=== PATIENT | male | born 1965 | race Caucasian/White ===

== ENCOUNTER 2021-04-05 09:56 | Inpatient (IN) | payer MEDICAID ==
[2021-03-29 15:41] LABS: BASOPHILS # (AUTO) 0.1 X10'3 (0-0.2); EOSINOPHILS # (AUTO) 0.4 X10'3 (0-0.9); EOSINOPHILS % (AUTO) 3.1 % (0-6); LYMPHOCYTES # (AUTO) 2.8 X10'3 (1.1-4.8); LYMPHOCYTES % (AUTO) 24.4 % (21-51); MEAN CORPUSCULAR HEMOGLOBIN 29.9 PG (27.0-31.0); MEAN CORPUSCULAR HGB CONC 34.5 g/dL (33.0-36.5); MEAN CORPUSCULAR VOLUME 86.4 FL (78-98); MEAN PLATELET VOLUME 6.9 FL (7.4-10.4); MONOCYTES # (AUTO) 1.1 X10'3 (0-0.9); MONOCYTES % (AUTO) 9.9 % (2-12); NEUTROPHILS # (AUTO) 7.1 X10'3 (1.8-7.7); NEUTROPHILS % (AUTO) 61.6 % (42-75); PRE OP HEMOGLOBIN 15.6 g/dL (14.0-17.9); PRE OP PLATELET COUNT 276 X10'3 (140-440); RED BLOOD COUNT 5.21 X10'6 (4.70-6.10); RED CELL DISTRIBUTION WIDTH 13.7 % (11.5-14.5)
[2021-03-29 15:51] LABS: ALBUMIN 4.3 G/DL (3.4-5.0); ALBUMIN/GLOBULIN RATIO 1.2 (1.1-1.5); ALKALINE PHOSPHATASE 115 IU/L (46-116); BLOOD UREA NITROGEN 16 MG/DL (7-18); BUN/CREATININE RATIO 15.7 (5.4-32.0); CALCIUM 9.3 MG/DL (8.5-10.1); CHLORIDE 106 MMOL/L (99-107); CREATININE 1.02 MG/DL (0.60-1.10); PRE OP ALT 56 U/L (30-65); PRE OP ANION GAP 8 (8-16); PRE OP AST 20 U/L (10-37); PRE OP BILIRUB, TOTAL 0.4 MG/DL (0.0-1.0); PRE OP GLUCOSE 102 MG/DL (70-104); PRE OP POTASSIUM 4.2 MMOL/L (3.4-5.1); PRE OP SODIUM 144 MMOL/L (135-145); TOTAL CARBON DIOXIDE 29.8 MMOL/L (24-32); eGFR 76 ML/MIN
[~2021-04-05] VITALS: Ht 182.9 cm; Wt 98.1 kg
[2021-04-05] VITALS (17 sets, daily range): BP systolic 126–153; BP diastolic 72–95
[~2021-04-05 09:56] MED LIST: METF-437 PO; famotidine 20mg tablet PO ONE; ringers solution, lacted 1,000 ML IV SCH
[2021-04-05] MEDS ORDERED: midazolam 1 mg/ML 2ml injection ONE (15:41)
[2021-04-05] MEDS ORDERED: fentaNYL/PF 50MCG/1 ML 2ML syringe ONE ×2 (15:41→16:50)
[2021-04-05] MEDS ORDERED: LIDOcaine 1% 30ml preserv. free vial ONE (16:04)
[2021-04-05] MEDS ORDERED: BUPIVAcaine 0.5% inj/PF 30 ML ONE (16:04)
[2021-04-05] MEDS ORDERED: meperidine/PF 25mg/ml syringe IV PRN ×3 (16:25)
[2021-04-05] MEDS ORDERED: morphine 4 MG/ML inj SYRINge IV PRN (16:25)
[2021-04-05] MEDS ORDERED: sevoflurane 250ml liquid IH ONE (16:25)
[2021-04-05] MEDS ORDERED: ringers solution, lacted 1,000 ML IV SCH (16:25)
[2021-04-05] MEDS ORDERED: morphine 2 MG/ML inj. syringe IV PRN (16:25)
[2021-04-05] MEDS ORDERED: labetalol 20mg/4ml (5mg/ml) syringe IV ONE (16:25)
[2021-04-05] MEDS ORDERED: ondansetron/PF 4mg/2ml inj IV PRN ×2 (16:25→21:05)
[2021-04-05] MEDS ORDERED: proCHLORperazine 10 MG/2 ml inj IV PRN (16:25)
[2021-04-05] MEDS ORDERED: propofol inj 20 ML IV ONE (16:50)
[2021-04-05] MEDS ORDERED: ondansetron/PF 4mg/2ml inj ONE (16:50)
[2021-04-05] MEDS ORDERED: LIDOcaine 2% (20mg/ml) 5ml vial ONE (16:50)
[2021-04-05] MEDS ORDERED: rocuronium 10mg/ml inj IV ONE (16:50)
[2021-04-05] MEDS ORDERED: glycopyrrolate 0.2mg/ml inj ONE (18:23)
[2021-04-05] MEDS ORDERED: acetaminophen 1,000mg/100ml IV 100 ML IV ONE (18:23)
[2021-04-05] MEDS ORDERED: neostigmine methylsulfate 1 MG/ML 10ml vial ONE (18:23)
[2021-04-05] MEDS ORDERED: meperidine/PF 25mg/ml syringe ONE (18:25)
--- NOTE | 2021-04-05 18:35 | NUR ---
Received from OR via , accompanied by Anesthesiologist and report given by Anesthesiolgist. PATIENT WAKING UP, DENIES PAIN,. SCD ON. 20G RUE. V/S WNL, SCD ON, BANDAIDS X4 TO ABDOMEN CDI
[2021-04-05] MEDS ORDERED: insulin regular, human U-100 3ml vial - multi-dose IV ONE (18:45)
--- NOTE | 2021-04-05 18:52 | NUR ---
SEE LABS INSULIN ORDERED 4 UNITS FOR BG 178
[2021-04-05] MEDS ORDERED: HYDR-3964 PO (19:21)
[2021-04-05] MEDS: HYDROcodone/acetaminophen 5mg/325mg tablet PO PRN (19:26)
[2021-04-05] MEDS ORDERED: ceFAZolin 1000mg inj ONE (20:02)
--- NOTE | 2021-04-05 20:08 | NUR ---
PATIENT UNABLE TO PEE- BLADDER SCANNED FOR 323CC
--- NOTE | 2021-04-05 20:55 | NUR ---
PATIENT A&OX4, DENIES PAIN,. SCD ON. 20G RUE. V/S WNL, SCD ON, BANDAIDS X4 TO ABDOMEN CDI, PATIENT UNABLE TO PEE SO F/C PLACED PER DR CORCORAN WITH 350CC IN F/C NOW. PATIENT BEING ADMITTED PRECAUTIONARY. TAKEN TO 360 AND HOOKED UP TO MONITORS IN ROOM AND REPORT GIVEN TO LINE OPERATOR WHO HAS TAKEN OVER PATIENT CARE.
[2021-04-05] MEDS ORDERED: HYDROcodone/acetaminophen 10/325mg tab PO PRN (21:05)
[2021-04-05] MEDS ORDERED: HYDROcodone/acetaminophen 5mg/325mg tablet PO PRN (21:05)
--- NOTE | 2021-04-06 02:07 | NUR ---
Pt continues to c/o FC discomfort. Removed FC per pt request.
[2021-04-06] MEDS: Potassium Cl inj 20 MEQ in ringers solution, lacted 1,000 ML IV SCH ×3 (03:25→13:15)
--- NOTE | 2021-04-06 06:40 | NUR ---
Problems reprioritized. Patient report given, questions answered & plan of care reviewed with REJI Garcia.
--- NOTE | 2021-04-06 06:45 | NUR ---
Patient in room [facility]. I have received report from Vandana MENDOZA and had the opportunity to ask questions and assume patient care.
[2021-04-06 07:22] VITALS: BP 145/77
[2021-04-06] MEDS: HYDROcodone/acetaminophen 5mg/325mg tablet PO PRN (08:40)
[2021-04-06 14:25] VITALS: BP 136/80
== END 2021-04-06 14:24 | disposition home or self-care (01) | DRG 228 ==
LOC: PAS 09:56 → SUR 3N 21:06 → OBSVTOIN 21:06
PROVIDERS: ADMIT Surgery; ATTEND Surgery
PROC: 0DNW4ZZ Release Peritoneum, Percutaneous Endoscopic Approach (ICD-10-PCS; 2021-04-05)
PROC: 0DNU4ZZ Release Omentum, Percutaneous Endoscopic Approach (ICD-10-PCS; 2021-04-05)
PROC: 0DN84ZZ Release Small Intestine, Percutaneous Endoscopic Approach (ICD-10-PCS; 2021-04-05)
PROC: 8E0W4CZ Robotic Assisted Procedure of Trunk Region, Percutaneous Endoscopic Approach (ICD-10-PCS; 2021-04-05)
PROC: 0YUA4JZ Supplement Bilateral Inguinal Region with Synthetic Substitute, Percutaneous Endoscopic Approach (ICD-10-PCS; principal; 2021-04-05 16:20)
DX: K40.20 Bilateral inguinal hernia, without obstruction or gangrene, not specified as recurrent (principal); E11.9 Type 2 diabetes mellitus without complications; E78.5 Hyperlipidemia, unspecified; F17.210 Nicotine dependence, cigarettes, uncomplicated; K66.0 Peritoneal adhesions (postprocedural) (postinfection); R33.9 Retention of urine, unspecified; Z79.84 Long term (current) use of oral hypoglycemic drugs; Z90.49 Acquired absence of other specified parts of digestive tract; Z88.0 Allergy status to penicillin; Z79.899 Other long term (current) drug therapy
CPT/HCPCS: 36415; 80053; 82948; 85025; 87081; 93005; A4215; A4618; C1781; G0378; J0131; J0690; J1815; J2001; J2175; J2250; J2405; J2704; J2710; J3010; J3480; J3490; J7120; U0003; U0005

== ENCOUNTER 2023-03-03 08:14 | Emergency (ER) | payer MEDICAID ==
[~2023-03-03] VITALS: Ht 182.9 cm; Wt 100.0 kg
[~2023-03-03 08:14] MED LIST changes: +HYDR-3964 PO; -famotidine 20mg tablet PO ONE; -ringers solution, lacted 1,000 ML IV SCH
[2023-03-03] MEDS ORDERED: diazepam inj 5 MG/ML inj. IV ONE ×2 (08:40→11:35)
[2023-03-03] MEDS ORDERED: morphine 4 MG/ML inj SYRINge IV ONE ×2 (08:40→09:45)
[2023-03-03] MEDS ORDERED: morphine 2 MG/ML inj. syringe IV ONE (14:05)
[2023-03-03 16:51] VITALS: BP 132/92; PULSE 75; RESP 20; O2SAT 100
[2023-03-03] MEDS ORDERED: HYDR-3965 PO (17:51)
[2023-03-03] MEDS ORDERED: morphine 10mg/ml inj. IM ONE (18:20)
[2023-03-03 19:43] VITALS: TEMP 97.6
== END 2023-03-03 19:48 | disposition home or self-care (01) ==
LOC: ER 08:15
DX: S39.012A Strain of muscle, fascia and tendon of lower back, initial encounter (principal); M54.31 Sciatica, right side; E11.9 Type 2 diabetes mellitus without complications; Z88.0 Allergy status to penicillin; Z79.899 Other long term (current) drug therapy; X58.XXXA Exposure to other specified factors, initial encounter; Y93.89 Activity, other specified; Y92.89 Other specified places as the place of occurrence of the external cause; Y99.8 Other external cause status
CPT/HCPCS: 72148; 82948; 96372; 96374; 96375; 96376; 99285; J2270; J2274; J3360

== ENCOUNTER 2025-05-26 15:43 | Emergency (ER) | payer MEDICAID ==
[~2025-05-26] VITALS: Ht 182.9 cm; Wt 94.6 kg
[2025-05-26 15:49] VITALS: TEMP 97.1
[2025-05-26 17:38] LABS: MEAN PLATELET VOLUME 7.2 FL (7.4-10.4); RED CELL DISTRIBUTION WIDTH 14.7 % (11.5-14.5)
--- NOTE | 2025-05-26 17:41 | RADIOLOGY REPORT ---
CLINICAL HISTORY: New Headache onset TECHNIQUE: Helical scanning was performed of the head from the skull base to the vertex. Multiplanar reconstructions were performed. This exam was performed according to our departmental dose optimization program. Up-to-date CT equipment and radiation dose reduction techniques are utilized as appropriate. CTDI 64 DLP 1296 COMPARISON: None FINDINGS: There is no evidence for acute intracranial hemorrhage, acute ischemic changes, mass, mass effect, or extra-axial fluid collection. There is no hydrocephalus or midline shift. There is no effacement of the cerebral sulci and basal subarachnoid cisterns. The humphreys-white matter differentiation is well maintained. The imaged paranasal sinuses are clear. IMPRESSION: NO ACUTE INTRACRANIAL ABNORMALITY SEEN.
[2025-05-26 17:45] LABS: CREATININE 1.00 MG/DL (0.60-1.10); TOTAL CARBON DIOXIDE 28.0 MMOL/L (24-32); eCRCL 87 ML/MIN; eGFR 76 ML/MIN
[2025-05-26] MEDS: ondansetron 4mg rapidly disintigrating tab PO ONE (19:28)
[2025-05-26] MEDS: ketorolac trometh 15mg/ml vial 15 MG/ML ML IM ONE (19:29)
--- NOTE | 2025-05-26 20:08 | Physician Documentation ---
History of Present Illness ~ Chief Complaint: Headache Stated Complaint: SEVERE HEADACHE/VOMITING Time Seen by MD: 17:15 Primary Medical Doctor: Mr Ha at [facility] in [place] Mode of Arrival: POV, Ambulatory HPI Type 2 diabetic he has been having intermittent frontal headache for a week to week and a half with the associated flow was sensitivity. No prior history of the same. No recent illness injury or infections. No reported fever or neck pain. No reported rash. No known ill contacts recent travels or hospitalizations. Medication Reconciliation Allergies: Coded Allergies: penicillin G (Verified Allergy, Unknown, 02/26/09) Scheduled Metformin Hcl (Metformin Hcl), 1 TAB PO BID, (Reported) Scheduled PRN Hydrocodone Bit/Acetaminophen (Hydrocodon-Acetaminophen 5-325), 1 TAB PO Q4H PRN for moderate or severe pain 4-10 Past Medical History Past Medical History: Diabetes Past Surgical History: orthopedic surgeries Alcohol Use: Other Drug Use: other Lives with: Spouse Review of Systems All Other Systems at this time: Reviewed and Negative Eyes: Reports: photophobia Neurological: Reports: headache Physical Exam Vital Signs: RN Vital Signs have been reviewed: Yes, Temperature: 97.1, Source: Temporal, Heart Rate: 86, Respiratory Rate: 16, BP: 152/93, Pulse Oximetry: 98, Weight: 94.600 Oxygen Flow Rate: 0 General Appearance: alert, WD/WN, mild distress ENT: normal ENT inspection Oropharynx: normal inspection Head: normal inspection Neck: non-tender Respiratory: no respiratory distress Chest: no accessory muscle use Cardiovascular: normal peripheral pulses Back: normal inspection, no CVA tenderness Extremities: normal inspection Neurologic: oriented x4, rn testing II-XII nml as tested Motor / Sensory: no motor deficit, no sensory deficit, no pronator drift Psychiatric: normal mood/affect Progress Results/Orders Results/Orders Orders - SEVERIANO MCCOY PAC Ct Head (05/26/25 17:30) Completed Orders - SEVERIANO MCCOY PAC Ct Head (05/26/25 17:30) BMP (05/26/25 17:16) Cbc/Diff (05/26/25 17:16) Ketorolac Trometh 15mg/Ml Vial (Toradol (05/26/25 19:10) Ondansetron Disint. Tablet (Zofran Odt T (05/26/25 19:10) Medications Received in ER Medications (Trade) Dose Ordered Sig/Filiberto Route PRN Reason Start Time Stop Time Status Last Admin Dose Admin (Toradol injection) 15 mg ONCE ONCE IM 05/26/25 19:10 05/26/25 19:12 DC 05/26/25 19:29 15 MG (Zofran ODT tablet) 4 mg ONCE ONCE PO 05/26/25 19:10 05/26/25 19:12 DC 05/26/25 19:28 4 MG Vital Signs 05/26/25 05/26/25 05/26/25 05/26/25 15:49 19:29 19:32 19:34 Temp 97.1 Pulse 78 86 Resp 18 16 16 16 B/P (MAP) 136/102 152/93 (112) Pulse Ox 99 98 O2 Flow Rate 0 0 Laboratory Tests Test 05/26/25 16:45 White Blood Count 11.5 H Red Blood Count 5.10 Hemoglobin 15.2 Hematocrit 44.5 Mean Corpuscular Volume 87.2 Mean Corpuscular Hemoglobin 29.7 Mean Corpuscular Hemoglobin Concent 34.1 Red Cell Distribution Width 14.7 H Platelet Count 273 Mean Platelet Volume 7.2 L Neutrophils (%) (Auto) 72.1 Lymphocytes (%) (Auto) 17.8 L Monocytes (%) (Auto) 6.8 Eosinophils (%) (Auto) 2.5 Basophils (%) (Auto) 0.8 Neutrophils # (Auto) 8.3 H Lymphocytes # (Auto) 2.0 Monocytes # (Auto) 0.8 Eosinophils # (Auto) 0.3 Basophils # (Auto) 0.1 CBC Comment Sodium Level 138 Potassium Level 4.3 Chloride Level 102 Carbon Dioxide Level 28.0 Anion Gap 8 Blood Urea Nitrogen 12 Creatinine 1.00 Estimated GFR/1.73 m2 76 BUN/Creatinine Ratio 12.0 Glucose Level 181 H Calcium Level 8.9 Albumin 3.8 Chemistry Comments Medical Decision Making Additional information obtaine: family Findings 59-year-old male presents to the emergency department with a headache located to the frontal part of his brain that is been waxing and waning for week with associated aura and photosensitivity. CT imaging reassuring for patient. Labs reassuring for no electrolyte derangement. Toradol IM Zofran both diagnostic and therapeutic. Patient had near complete resolution of headache. Patient remains grossly neurologically intact without focal no deficits unsteady gait. He will be discharged his primary care physician for further workup. No indication for MRI imaging tonight. Differential Dx:Considerations: Include: BERMUDEZ-Cluster, BERMUDEZ-Migraine, BERMUDEZ- Hypertensive, BERMUDEZ-Muscular contraction, Hemorrhage-Intracerebral, Hemorrhage- Subarachnoid, Hemorrhage-Subdural, Mass lesion, Meningitis, Post-traumtic, Pseudotumor cerebri Departure Disposition: HOME / SELF CARE / HOMELESS Impression: Primary Impression: Headache Qualified Codes: R51.9 - Headache, unspecified Condition: Improved Discharge Instructions: Headache Additional Instructions: Department and received a CT imaging of the hand which is reassuring. Your labs were also reassuring. You received an injection Toradol which mitigated your headache. Please take Tylenol and ibuprofen at the onset of headache and make follow up appointment with your primary care physician. Thank you for visiting emergency department [facility]. Referrals: NO PRIMARY CARE PROVIDER (PCP) Education Educated: Patient, Family Educated regarding: diagnosis, treatment, prognosis, need for follow up (To physician 3-5 days for repeated headache evaluation.) Signature Scribe Signature: . Attestation: . SEVERIANO MCCOY PAC May 26, 2025 20:08
[2025-05-26 20:23] VITALS: BP 144/92; PULSE 86; RESP 16; O2SAT 98
== END 2025-05-26 20:26 | disposition home or self-care (01) ==
LOC: ER 15:43
DX: R51.9 Headache, unspecified (principal); E11.9 Type 2 diabetes mellitus without complications; Z88.0 Allergy status to penicillin; Z98.890 Other specified postprocedural states
CPT/HCPCS: 36415; 70450; 80048; 85025; 96372; 99285; J1885